=== PATIENT | female | born 1960 | race Caucasian/White ===

== ENCOUNTER → 2019-03-21 | Outpatient (CLI) | payer OTHER ==
[2019-03-21 14:17] LABS: ABSOLUTE EOSINOPHILS 0.3 thou/uL (0.0-0.7); ABSOLUTE LYMPHOCYTES 1.7 thou/uL (0.8-5.3); ABSOLUTE MONOCYTES 0.8 thou/uL (0.0-1.2); ABSOLUTE NEUTROPHILS 4.6 thou/uL (1.6-8.1); BASOPHILS 0.7 %; EOSINOPHILS 4.5 %; HEMOGLOBIN 15.3 gm/dL (12.0-15.0); LYMPHOCYTES 22.5 %; MCH 28.3 pg (26.0-34.0); MCHC 33.2 g/dL (28.0-37.0); MCV 85.2 fL (80.0-100.0); MONOCYTES 10.6 %; MPV 10.8 fl. (7.2-11.1); NUCLEATED RBCS 0 /100WBC; PLATELET COUNT* 102 thou/uL (150-400); POLYS 61.7 %; RDW-CV 13.6 % (10.5-14.5); WBC 7.4 thou/uL (4.0-11.0)
== END ==
LOC: M.LAB 13:59
PROVIDERS: Nurse Practitioner Adult Health
DX: D69.3 Immune thrombocytopenic purpura (principal)

== ENCOUNTER → 2020-07-19 | Outpatient (CLI) | payer OTHER | LOC: M.ULTRA 07:17 | PROVIDERS: ATTEND Family Medicine | DX: K76.0 Fatty (change of) liver, not elsewhere classified (principal); R74.8 Abnormal levels of other serum enzymes ==

== ENCOUNTER 2020-09-02 15:41 | Emergency (ER) | payer OTHER ==
[~2020-09-02] VITALS: Ht 175.3 cm; Wt 85.3 kg
[2020-09-02 16:10] LABS: URINE BILIRUBIN NEGATIVE (Negative); URINE BLOOD TRACE (Negative); URINE CLARITY CLEAR; URINE COLOR YELLOW; URINE GLUCOSE-RANDOM NEGATIVE (Negative); URINE KETONES NEGATIVE (Negative); URINE LEUKOCYTES-REFLEX TRACE (Negative); URINE NITRITE-REFLEX NEGATIVE (Negative); URINE PROTEIN NEGATIVE (Negative); URINE SPECIFIC GRAVITY >= 1.030 (1.005-1.030); URINE UROBILINOGEN 0.2 E.U./dl (0.2-1.0)
[2020-09-02] MEDS ORDERED: VITAMIN B-1100 M2 PO (16:15)
[2020-09-02] MEDS ORDERED: LEVOTHYROXINE175 MC1 PO (16:15)
[2020-09-02 16:18] LABS: ABSOLUTE EOSINOPHILS 0.3 thou/uL (0.0-0.7); ABSOLUTE LYMPHOCYTES 1.6 thou/uL (0.8-5.3); ABSOLUTE MONOCYTES 0.9 thou/uL (0.0-1.2); ABSOLUTE NEUTROPHILS 4.8 thou/uL (1.6-8.1); BASOPHILS 0.4 %; EOSINOPHILS 3.6 %; HEMATOCRIT 45.9 % (37.0-47.0); HEMOGLOBIN 15.3 gm/dL (12.0-15.0); LYMPHOCYTES 20.4 %; MCH 27.8 pg (26.0-34.0); MCHC 33.3 g/dL (28.0-37.0); MCV 83.5 fL (80.0-100.0); MONOCYTES 12.4 %; MPV 10.3 fl. (7.2-11.1); NUCLEATED RBCS 0 /100WBC; PLATELET COUNT* 96 thou/uL (150-400); POLYS 63.2 %; RDW-CV 13.4 % (10.5-14.5); WBC 7.7 thou/uL (4.0-11.0)
[2020-09-02 16:18] LABS: BACTERIA-REFLEX >30 Many /HPF (None Seen); CASTS None Seen /LPF (None Seen); MUCUS >6 Heavy strn/LPF (None Seen); SQUAMOUS >10 Many /LPF (0-3); URINE RBC 0-2 Rare /HPF (0-2); URINE WBC-REFLEX 6-15 Few /HPF (0-5)
[2020-09-02 16:19] LABS: CRYSTALS None Seen /LPF (None Seen)
[2020-09-02 16:26] LABS: CALCIUM 9.1 mg/dL (8.5-10.1); POTASSIUM 4.1 mmol/L (3.5-5.1)
[2020-09-02 16:30] LABS: ALBUMIN 3.7 g/dL (3.4-5.0); TOTAL BILIRUBIN 0.4 mg/dL (<0.1-1.0); TOTAL PROTEIN 7.6 g/dL (6.4-8.2)
--- NOTE | 2020-09-02 17:01 | EKG ---
[place] [address] ELECTROCARDIOGRAM REPORT Name: EVELIO BLUM Room: [facility]#: [id number] Admission: 09/02/20 Attend Phys: Discharge: Date of : 62 Date of Service: 09/02/201613 Report #: [id number] THIS REPORT FOR: //name// [facility] ED Test Date: 2020-09-02 Test Time: 16:14:21 Pat Name: EVELIO BLUM Department: Room: Gender: Addiction Medicine Physician: [facility] : 1960 Requested By: Nagi Abebe Order Number: [id number] MD: Sukhwinder Bravo Measurements Intervals [place] Rate: 88 P: 62 [place]: 130 QRS: -16 QRSD: 86 T: 46 QT: 370 QTc: 448 Interpretive Statements Sinus rhythm Borderline left axis deviation No previous ECG available for comparison Electronically Signed On 09-02-2020 17:01:43 [employer] by Sukhwinder Bravo [email or web address] <ELECTRONICALLY SIGNED> By: Sukhwinder Bravo MD, [facility] 09/02/201700 13 161 Sukhwinder Bravo MD, FACC /EPI
[2020-09-02] MEDS ORDERED: FLAGYL500 M1 PO (17:53)
[2020-09-02] MEDS ORDERED: PERCOCET 5-3251 EACH PO (17:53)
[2020-09-02] MEDS ORDERED: CIPROFLOXACIN500 M1 PO (17:53)
[2020-09-02] MEDS ORDERED: ZOFRAN ODT4 MG SUBLING (17:55)
[2020-09-02 18:25] VITALS: BP 143/85
== END 2020-09-02 18:25 | disposition home or self-care (01) ==
LOC: M.ERS 15:41
PROVIDERS: Family Medicine
DX: K57.32 Diverticulitis of large intestine without perforation or abscess without bleeding (principal); Z88.2 Allergy status to sulfonamides; Z98.890 Other specified postprocedural states; Z90.49 Acquired absence of other specified parts of digestive tract; Z87.442 Personal history of urinary calculi